=== PATIENT | male | born 1975 | race African-American/Black ===

== ENCOUNTER 2017-11-05 20:45 | Emergency (ER) | payer BC ==
[2017-11-05] MEDS ORDERED: NORMAL SALINE 1000 ML 1,000 ML IV ONE (21:13)
--- NOTE | 2017-11-05 21:31 | RADIOLOGY REPORT (SQ) ---
EXAM DESCRIPTION: CHEST 2 VIEWS COMPLETED DATE/TIME: 11/05/2017 9:24 pm REASON FOR STUDY: cough/dizziness COMPARISON: None. EXAM PARAMETERS: NUMBER OF VIEWS: two views TECHNIQUE: Digital Frontal and Lateral radiographic views of the chest acquired. RADIATION DOSE: NA LIMITATIONS: none FINDINGS: LUNGS AND PLEURA: No opacities, masses or pneumothorax. No pleural effusion. MEDIASTINUM AND HILAR STRUCTURES: No masses or contour abnormalities. HEART AND VASCULAR STRUCTURES: Heart normal size. No evidence for failure. BONES: No acute findings. HARDWARE: None in the chest. OTHER: No other significant finding. IMPRESSION: NO ACUTE RADIOGRAPHIC FINDING IN THE CHEST. TECHNICAL DOCUMENTATION: JOB ID: [id number] [employer]- All Rights Reserved Reading location - IP/workstation name: [email or web address]
[2017-11-05 22:15] LABS: ABSOLUTE EOSINOPHILS # (AUTO) 0.2 10^3/uL (0.0-0.6); ABSOLUTE LYMPHOCYTES (AUTO) 2.4 10^3/uL (0.5-4.7); ABSOLUTE MONOCYTES (AUTO) 0.7 10^3/uL (0.1-1.4); ABSOLUTE NEUT (AUTO) 5.5 10^3/uL (1.7-8.2); BASOPHILS % (AUTO) 0.3 % (0-2); HEMOGLOBIN 13.8 g/dL (13.5-17.0); LYMPHOCYTES % (AUTO) 27.7 % (13-45); MEAN CORPUSCULAR HEMOGLOBIN 27.4 pg (27.0-33.4); MEAN CORPUSCULAR HGB CONC 33.6 g/dL (32.0-36.0); MEAN CORPUSCULAR VOLUME 81 fl (80-97); MONOCYTES % (AUTO) 7.7 % (3-13); PLATELET COUNT 284 10^3/uL (150-450); RED BLOOD COUNT 5.03 10^6/uL (4.35-5.55); RED CELL DISTRIBUTION WIDTH 14.7 % (11.5-14.0); SEGMENTED NEUTROPHILS % (AUTO) 62.3 % (42-78); TOTAL CELLS COUNTED % (AUTO) 100 %; WHITE BLOOD COUNT 8.8 10^3/uL (4.0-10.5)
[2017-11-05 22:36] LABS: ALANINE AMINOTRANSFERASE 33 U/L (21-72); ALBUMIN 4.2 g/dL (3.5-5.0); ALKALINE PHOSPHATASE 74 U/L (38-126); ANION GAP 11 (5-19); ASPARTATE AMINO TRANSFERASE 51 U/L (17-59); BILIRUBIN,DIRECT 0.4 mg/dL (0.0-0.4); BILIRUBIN,TOTAL 0.7 mg/dL (0.2-1.3); BLOOD UREA NITROGEN 22 mg/dL (7-20); CALCIUM 9.2 mg/dL (8.4-10.2); CARBON DIOXIDE 30 mmol/L (22-30); CHLORIDE 103 mmol/L (98-107); CREATINE KINASE 686 U/L (55-170); GLUCOSE 101 mg/dL (75-110); POTASSIUM 4.8 mmol/L (3.6-5.0); TOTAL PROTEIN 7.8 g/dL (6.3-8.2)
[2017-11-05 22:47] LABS: CREATINE KINASE MB 2.06 ng/mL (<4.55)
[2017-11-05 22:50] LABS: TROPONIN I < 0.012 ng/mL
[2017-11-05] MEDS ORDERED: BENZONATATE 100 MG CAPSULE PO ONE ×2 (23:30)
--- NOTE | 2017-11-05 23:35 | ER Document Report ---
ED General - General Chief Complaint: Passed Out Prior to Arrival Stated Complaint: LOC/COUGH Time Seen by Provider: 11/05/17 21:05 TRAVEL OUTSIDE OF THE [place] IN LAST 30 DAYS: No - HPI Patient complains to provider of: Cough lightheadedness possible syncope Notes: Patient brought in for the above-stated symptoms. Patient states cough ongoing for the last 2 weeks. Patient states that he has been coughing and spells causing to feel lightheaded dizzy states possible episode of passing out. Patient denies any chest pain fever chills nausea vomiting diarrhea denies any reduction of his cough. Patient denies smoking. Patient is a truck crane operator long distance. Patient denies any shortness of breath. Patient was comfortably upon my evaluation concern for possible underlying infection causing his cough. - Related Data Allergies/Adverse Reactions: No Known Allergies Allergy (Unverified 11/05/17 20:48) Past Medical History - Social History Smoking Status: Unknown if Ever Smoked Family History: Reviewed & Not Pertinent Review of Systems - Review of Systems Constitutional: No symptoms reported EENT: No symptoms reported Cardiovascular: No symptoms reported Respiratory: Cough Gastrointestinal: No symptoms reported Genitourinary: No symptoms reported Male Genitourinary: No symptoms reported Musculoskeletal: No symptoms reported Skin: No symptoms reported Hematologic/Lymphatic: No symptoms reported Neurological/Psychological: Other - Dizziness -: Yes All other systems reviewed and negative Physical Exam - Vital signs Vitals: Temp Pulse Resp BP Pulse Ox 99.4 F 90 18 129/77 H 97 11/05/17 20:59 11/05/17 20:59 11/05/17 20:59 11/05/17 20:59 11/05/17 20:59 Interpretation: Normal - General General appearance: Appears well, Alert - HEENT Head: Normocephalic, Atraumatic Eyes: Normal Pupils: PERRL - Respiratory Respiratory status: No respiratory distress Chest status: Nontender Breath sounds: Normal Chest palpation: Normal - Cardiovascular Rhythm: Regular Heart sounds: Normal auscultation Murmur: No - Abdominal Inspection: Normal Distension: No distension Bowel sounds: Normal Tenderness: Nontender Organomegaly: No organomegaly - Back Back: Normal, Nontender - Extremities General upper extremity: Normal inspection, Nontender, Normal color, Normal ROM , Normal temperature General lower extremity: Normal inspection, Nontender, Normal color, Normal ROM , Normal temperature, Normal weight bearing. No: Rupert's sign - Neurological Neuro grossly intact: Yes Cognition: Normal Orientation: AAOx4 Cameron Coma Scale Eye Opening: Spontaneous Ana Coma Scale Verbal: Oriented Ana Coma Scale Motor: Obeys Commands Ana Coma Scale Total: 15 Speech: Normal Motor strength normal: LUE, RUE, LLE, RLE Sensory: Normal - Psychological Associated symptoms: Normal affect, Normal mood - Skin Skin Temperature: Warm Skin Moisture: Dry Skin Color: Normal Course - Re-evaluation Re-evalutation: 11/06/17 01:53 The patient has lightheaded dizziness cough as the patient's symptoms not suggestive of pulmonary embolus, cardiac ischemia, aortic dissection, or other serious etiology. Given the extremely low risk of these diagnoses further testing and evaluation for these possibilities does not appear to be indicated at this time. The patient has been instructed to return if the symptoms worsen or change in any way. Unclear etiology for the patient's cough. Will treat with Tessalon Perles. Patient otherwise remained stable here in ER. Recommend follow-up PCP - Vital Signs Vital signs: Temp Pulse Resp BP Pulse Ox 99.4 F 90 22 H 116/65 96 11/05/17 20:59 11/05/17 20:59 11/06/17 00:01 11/06/17 00:01 11/06/17 00:01 - Laboratory Result Diagrams: 11/05/17 21:49 11/05/17 21:49 Laboratory results interpreted by me: 11/05/17 11/05/17 21:49 21:49 RDW 14.7 H BUN 22 H Creatine Kinase 686 H Discharge - Discharge Clinical Impression: Cough, Feeling light headed Condition: Good Disposition: HOME, SELF-CARE Instructions: Cough Suppressant & Expectorant Medications, Dehydration ([facility]), Near Syncopal Episode ([facility]) Additional Instructions: Your laboratory studies chest x-ray EKG did not show any signs of infection cardiac damage electrolyte abnormality causing her symptoms tonight. We recommend trying honey for cough suppression. We will give you a medication called Tessalon Perles to help out with cough. Recommend following up with your primary care physician for further evaluation. Please avoid any dust or particulate matter fumes. I also recommend trying taan-rsi-onpciki Zantac twice a day for the next week to see if this also helps out with her cough. Return to ER symptoms worsen. Signs of slight dehydration worsening tonight please make sure you are drinking plenty of fluids to stay well-hydrated. Prescriptions: Benzonatate [Tessalon Perle 100 mg Capsule] 100 mg PO Q8HP PRN #30 cap PRN Reason: Ranitidine HCl [Zantac 75 mg Tablet] 75 mg PO BID #14 tablet Forms: Return to Work
[2017-11-06 00:11] VITALS: BP 116/65
--- NOTE | 2017-11-06 07:36 | EKG REPORT ---
SEVERITY:- BORDERLINE ECG - SINUS RHYTHM BORDERLINE INFERIOR Q WAVES : Confirmed by: Dante Saldana MD 06-Nov-2017 07:36:21
== END 2017-11-06 00:22 | disposition home or self-care (01) ==
LOC: ER 20:45
DX: R05 Cough (principal); R42 Dizziness and giddiness
CPT/HCPCS: 93005; 99284; 96360; 36415; 82553; 82962; 82550; 85025; 80053; 84484; 71046; 93010; J7030

== ENCOUNTER 2017-11-08 18:26 | Emergency (ER) | payer BC ==
--- NOTE | 2017-11-08 19:12 | ER Document Report ---
ED Medical Screen (RME) - General Chief Complaint: Flu Symptoms Stated Complaint: LOC Time Seen by Provider: 11/08/17 19:07 Notes: Patient is a 42-year-old male who presents with several days of dry cough. During a prolonged spell, he will pass out briefly. He was seen in the ER 3 days ago and had a negative workup. He is taking Tessalon Perles without much relief of his symptoms. PE: Lungs CTAB. RRR. No acute distress. I have greeted and performed a rapid initial assessment of this patient. A comprehensive ED assessment and evaluation of the patient, analysis of test results and completion of the medical decision making process will be conducted by additional ED providers. TRAVEL OUTSIDE OF THE [place] IN LAST 30 DAYS: No - Related Data Allergies/Adverse Reactions: No Known Allergies Allergy (Verified 11/08/17 18:27) Past Medical History - Social History Chew tobacco use (# tins/day): No Frequency of alcohol use: None Drug Abuse: None Renal/ Medical History: Denies: Hx Peritoneal Dialysis Physical Exam - Vital signs Vitals: Temp Pulse Resp BP Pulse Ox 98.8 F 84 20 139/82 H 95 11/08/17 18:33 11/08/17 18:33 11/08/17 18:33 11/08/17 18:33 11/08/17 18:33 Course - Vital Signs Vital signs: Temp Pulse Resp BP Pulse Ox 98.8 F 84 20 139/82 H 95 11/08/17 18:33 11/08/17 18:33 11/08/17 18:33 11/08/17 18:33 11/08/17 18:33
--- NOTE | 2017-11-08 19:47 | RADIOLOGY REPORT (SQ) ---
EXAM DESCRIPTION: CHEST 2 VIEWS COMPLETED DATE/TIME: 11/08/2017 7:38 pm REASON FOR STUDY: cough COMPARISON: 11/05/2017 EXAM PARAMETERS: NUMBER OF VIEWS: two views TECHNIQUE: Digital Frontal and Lateral radiographic views of the chest acquired. RADIATION DOSE: NA LIMITATIONS: none FINDINGS: LUNGS AND PLEURA: No opacities, masses or pneumothorax. No pleural effusion. MEDIASTINUM AND HILAR STRUCTURES: No masses or contour abnormalities. HEART AND VASCULAR STRUCTURES: Heart normal size. No evidence for failure. BONES: No acute findings. HARDWARE: None in the chest. OTHER: No other significant finding. IMPRESSION: NO ACUTE RADIOGRAPHIC FINDING IN THE CHEST. TECHNICAL DOCUMENTATION: JOB ID: [id number] [employer]- All Rights Reserved Reading location - IP/workstation name: [email or web address]
[2017-11-08] MEDS ORDERED: PREDNISONE 20 MG TABLET PO ONE (19:57)
[2017-11-08] MEDS ORDERED: GUAIFENESIN/D-METHORPHAN (200-20 MG) SYRUP 10 ML PO ONE (19:57)
[2017-11-08] MEDS ORDERED: AZITHROMYCIN 250 MG TABLET PO ONE (19:57)
[2017-11-08] MEDS ORDERED: IPRATROPIUM/ALBUTEROL 0.5-2.5 MG/3 ML AMPUL NEB ONE (19:57)
[2017-11-08] MEDS ORDERED: KETOROLAC TROMETHAMINE INJ/PF 30 MG/1 ML SDV IV ONE (19:58)
--- NOTE | 2017-11-08 20:00 | ER Document Report ---
ED General - General Chief Complaint: Flu Symptoms Stated Complaint: LOC Time Seen by Provider: 11/08/17 19:07 Mode of Arrival: Ambulatory Information source: Patient, Relative Notes: 42-year-old male presents with complaint of cough that started 2 weeks prior to arrival. Patient describes the cough as constant, nonproductive. Patient has had episode of posttussive emesis, syncope because of the coughing. He was seen 3 days prior to arrival where chest x-ray was obtained and patient was placed on Tessalon Perles. He states since that time he has still experience myalgias, persistent cough. He denies any fever, chills, sick contacts. TRAVEL OUTSIDE OF THE [place] IN LAST 30 DAYS: No - HPI Onset: Other Onset/Duration: Persistent, Worse Quality of pain: Achy Severity: Mild Associated symptoms: Body/muscle aches, Nonproductive cough, Vomiting. denies: Fever Exacerbated by: Denies Relieved by: Denies Similar symptoms previously: Yes Recently seen / treated by doctor: Yes - Related Data Allergies/Adverse Reactions: No Known Allergies Allergy (Verified 11/08/17 18:27) Past Medical History - General Information source: Patient - Social History Smoking Status: Never Smoker Chew tobacco use (# tins/day): No Frequency of alcohol use: None Drug Abuse: None Lives with: Spouse/Significant other Family History: Reviewed & Not Pertinent Patient has suicidal ideation: No Patient has homicidal ideation: No - Medical History Medical History: Negative Renal/ Medical History: Denies: Hx Peritoneal Dialysis Review of Systems - Review of Systems Notes: REVIEW OF SYSTEMS: CONSTITUTIONAL : Denies fever, chills, or sweats. Denies recent illness. Denies weight loss, recent hospitalizations. EENT: Denies visual changes, eye pain. Denies nasal or sinus congestion or discharge. Denies sore throat, oral lesions, difficulty swallowing. CARDIOVASCULAR: Denies chest pain. Denies palpitations. Denies lower extremity edema. RESPIRATORY: Denies shortness of breath, GASTROINTESTINAL: Denies abdominal pain or distention. Denies nausea, vomiting , or diarrhea. Denies blood in vomitus, stools, or per rectum. Denies black, tarry stools. Denies constipation. GENITOURINARY: Denies difficulty urinating, painful urination, frequency, blood in urine, or vaginal discharge. MUSCULOSKELETAL: Denies back or neck pain or stiffness. Denies joint pain or swelling. SKIN: Denies rash, lesions or sores. HEMATOLOGIC : Denies easy bruising or bleeding. LYMPHATIC: Denies swollen glands. NEUROLOGICAL: Denies confusion or altered mental status. Denies passing out or loss of consciousness. Denies dizziness or lightheadedness. Denies headache. Denies weakness or paralysis. Denies problems difficulty with ambulation, slurred speech. Denies sensory loss, numbness, or tingling. Denies seizures. PSYCHIATRIC: Denies anxiety or stress. Denies depression, suicidal ideation, or homicidal ideation. Denies visual or auditory hallucinations. Physical Exam - Vital signs Vitals: Temp Pulse Resp BP Pulse Ox 98.8 F 84 20 139/82 H 95 11/08/17 18:33 11/08/17 18:33 11/08/17 18:33 11/08/17 18:33 11/08/17 18:33 Interpretation: Hypertensive. No: Tachypneic, Febrile - Notes Notes: PHYSICAL EXAMINATION: GENERAL: Well-appearing, well-nourished and in no acute distress. HEAD: Atraumatic, normocephalic. EYES: Pupils equal round and reactive to light, extraocular movements intact, sclera anicteric, conjunctiva are normal. ENT: Nares patent, oropharynx clear without exudates. Moist mucous membranes. NECK: Normal range of motion, supple without lymphadenopathy LUNGS: Mild expiratory wheeze in the upper lung garay. No respiratory distress. No accessory muscle use. HEART: Regular rate and rhythm without murmurs ABDOMEN: Soft, nontender, nondistended abdomen. No guarding, no rebound. No masses appreciated. Musculoskeletal: Normal range of motion, no pitting or edema. No cyanosis. NEUROLOGICAL: Cranial nerves grossly intact. Normal speech, normal gait. Normal sensory, motor exams PSYCH: Normal mood, normal affect. SKIN: Warm, Dry, normal turgor, no rashes or lesions noted. Course - Re-evaluation Re-evalutation: Chest X-Ray 11/08/17 19:10 IMPRESSION: NO ACUTE RADIOGRAPHIC FINDING IN THE CHEST. 11/09/17 00:13 42-year-old male presents with complaint of cough that started 2 weeks prior to arrival. Patient describes the cough as constant, nonproductive. Patient has had episode of posttussive emesis, syncope because of the coughing. He was seen 3 days prior to arrival where chest x-ray was obtained and patient was placed on Tessalon Perles. He states since that time he has still experience myalgias, persistent cough. He denies any fever, chills, sick contacts. Patient was seen by myself upon arrival. Vital signs were reviewed. Patient is afebrile, normotensive and not hypoxic. Patient does not appear toxic or dehydrated. They are in no acute distress. Previous medical records and nursing notes reviewed. Chest x-ray was obtained and showed no acute process. Patient received breathing treatments, prednisone, azithromycin during his ED course. On reevaluation he is resting comfortably, not coughing. Patient discharged home with prescriptions for azithromycin and prednisone. Patient provided the opportunity to ask questions, and express concerns. Discharge instructions discussed. Patient is agreeable with discharge home. Return indications explained and discussed with the patient who displays understanding. Patient encouraged to return to the emergency department immediately with any concerns. 11/09/17 00:13 - Vital Signs Vital signs: Temp Pulse Resp BP Pulse Ox 98.8 F 84 22 H 126/85 H 93 11/08/17 18:33 11/08/17 18:33 11/08/17 21:00 11/08/17 20:01 11/08/17 21:00 - Diagnostic Test Radiology reviewed: Image reviewed, Reports reviewed - EKG Interpretation by Me EKG shows normal: Sinus rhythm Rate: Normal Rhythm: NSR When compared to previous EKG there are: No significant change Discharge - Discharge Clinical Impression: Bronchospasm with bronchitis, acute Condition: Good Disposition: HOME, SELF-CARE Instructions: Bronchospasm ([facility]), Cough Suppressant & Expectorant Medications Additional Instructions: Follow up with your physician tomorrow for further care or return to the ED IMMEDIATELY if symptoms worsen or new concerns occur. If you cannot afford to follow up with your primary care physician a list of low cost clinics have been provided at the end of your discharge papers as well. Prescriptions: Guaifenesin/Codeine Phos [Robitussin-AC Syrup 59 ml] 5 ml PO QHS #50 ml Azithromycin 250 mg PO DAILY #4 tablet Prednisone [Deltasone 20 mg Tablet] 3 tab PO DAILY 5 Days #15 tablet Forms: Elevated Blood Pressure, Return to Work
[2017-11-08] MEDS ORDERED: ALBUTEROL SULFATE HFA (90 MCG/PUFF) 8 GM MDI (1 MDI/ER DISP) IH SCH (20:30)
--- NOTE | 2017-11-08 21:04 | EKG REPORT ---
SEVERITY:- NORMAL ECG - SINUS RHYTHM : Confirmed by: Dante Saldana MD 08-Nov-2017 21:03:32
[2017-11-08 21:21] VITALS: BP 126/85
== END 2017-11-08 21:37 | disposition home or self-care (01) ==
LOC: ER 18:26
DX: J20.9 Acute bronchitis, unspecified (principal)
CPT/HCPCS: 93005; 94640; 99284; 96374; 71046; 93010; J1885; J7512; J3490 ×2; J7620

== ENCOUNTER → 2017-11-13 | Outpatient (CLI) | payer BC ==
--- NOTE | 2017-11-13 08:28 | RADIOLOGY REPORT (SQ) ---
EXAM DESCRIPTION: CT CHEST WITHOUT COMPLETED DATE/TIME: 11/13/2017 7:34 am REASON FOR STUDY: COUGH (R05) R05 COUGH COMPARISON: 11/08/2017 TECHNIQUE: CT scan performed of the chest without intravenous contrast. Images reviewed with lung, soft tissue and bone windows. Reconstructed coronal and sagittal MPR images reviewed. All images st ored on PACS. All CT scanners at this facility use dose modulation, iterative reconstruction, and/or weight based d osing when appropriate to reduce radiation dose to as low as reasonably achievable (ALARA). [facility]: Dose Right [facility]: CareDose [facility]: Dose Right [facility]: Teradose 4D [facility]: [employer] RADIATION DOSE: CT Rad equipment meets quality standard of care and radiation dose reduction techniq ues were employed. CTDIvol: 17.4 mGy. DLP: 640 mGy-cm. mGy. LIMITATIONS: No technical limitations. FINDINGS: LUNGS AND PLEURA: No masses, infiltrates, or pneumothorax. No pleural effusions or pleura l calcifications. HILAR AND MEDIASTINAL STRUCTURES: No identified masses or abnormal nodes. No obvious aneurysm. HEART AND VASCULAR STRUCTURES: No aneurysm. No pericardial effusion. UPPER ABDOMEN: No significant findings. Limited exam. THYROID AND OTHER SOFT TISSUES: No masses. No adenopathy. BONES: No significant finding. HARDWARE: None in the chest. OTHER: No other significant findings. IMPRESSION: NO SIGNIFICANT FINDING ON NON-CONTRASTED CHEST CT. TECHNICAL DOCUMENTATION: JOB ID: [id number] Quality ID # [id number]: Final reports with documentation of one or more dose reduction techniques (e.g., Au tomated exposure control, adjustment of the mA and/or kV according to patient size, use of iterative reconstruction technique) 2010 [employer]- All Rights Reserved Reading location - IP/workstation name: [email or web address]
== END ==
LOC: RAD 07:21
PROVIDERS: ATTEND Internal Medicine
DX: R05 Cough (principal)
CPT/HCPCS: 71250